=== PATIENT | male | born 1950 | race African-American/Black ===

== ENCOUNTER 2019-03-14 05:49 | Emergency (ER) | payer BC, MEDICAID ==
[~2019-03-14] VITALS: Ht 172.7 cm; Wt 68.0 kg
[2019-03-14 06:47] LABS: BASOPHILS % 0.8 % (0.0-2.0); HEMATOCRIT. 40.9 % (42.0-52.0); LYMPHOCYTES % 21.2 % (20.0-50.0); MEAN CORPUSCULAR HEMOGLOBIN 30.7 pg (28.0-32.0); MEAN CORPUSCULAR VOLUME 90.2 fL (80.0-94.0); MEAN PLATELET VOLUME 9.7 fl (7.4-10.4); MONOCYTES % 7.6 % (2.0-8.0); NEUTROPHILS % 67.4 % (40.0-76.0); PLATELET 169 x1000/uL (130-400); RED BLOOD CELL COUNT 4.54 mill/uL (4.7-6.1); RED CELL DISTRIBUTION WIDTH 13.9 % (11.6-14.6)
[2019-03-14 06:53] LABS: CHLORIDE 112 mEq/L (98-107)
[2019-03-14 06:56] LABS: INR 1.2; PROTHROMBIN TIME 11.8 sec (9.6-11.0)
[2019-03-14 11:25] LABS: CLARITY URINE CLEAR (CLEAR); COLOR URINE YELLOW (YELLOW); KETONES URINE TRACE (NEGATIVE); LEUKOCYTE ESTERASE URINE NEGATIVE (NEGATIVE); NITRITE URINE NEGATIVE (NEGATIVE); OCCULT BLOOD URINE NEGATIVE (NEGATIVE); PROTEIN URINE NEGATIVE (NEGATIVE); SPECIFIC GRAVITY URINE 1.023 (1.005-1.030)
[2019-03-14 12:03] VITALS: BP 112/64
== END 2019-03-14 12:19 | disposition short-term general hospital (02) ==
LOC: ER 05:49
DX: G35 Multiple sclerosis (principal); Z99.3 Dependence on wheelchair; Z74.1 Need for assistance with personal care; N40.0 Benign prostatic hyperplasia without lower urinary tract symptoms; H40.9 Unspecified glaucoma; Z79.899 Other long term (current) drug therapy
CPT/HCPCS: 36415; 71045; 81003; 93005; 99285

== ENCOUNTER 2020-01-12 17:40 | Inpatient (IN) | payer MEDICARE, MEDICAID ==
[~2020-01-12] VITALS: Ht 162.6 cm; Wt 65.8 kg
[2020-01-12 20:28] LABS: BASOPHILS % 0.5 % (0.0-2.0); EOSINOPHILS % 1.6 % (0.0-5.0); HEMATOCRIT. 46.5 % (42.0-52.0); HEMOGLOBIN. 15.3 g/dL (14.0-18.0); LYMPHOCYTES % 19.7 % (20.0-50.0); MEAN CORPUSCULAR HEMOGLOBIN 29.8 pg (28.0-32.0); MEAN CORPUSCULAR VOLUME 90.5 fL (80.0-94.0); MEAN PLATELET VOLUME 10.1 fl (7.4-10.4); NEUTROPHILS % 72.2 % (40.0-76.0); PLATELET 182 x1000/uL (130-400); RED BLOOD CELL COUNT 5.14 mill/uL (4.7-6.1); RED CELL DISTRIBUTION WIDTH 14.1 % (11.6-14.6)
[2020-01-12 20:33] LABS: CHLORIDE 109 mEq/L (98-107)
[2020-01-12 20:40] LABS: ETHANOL BLOOD < 10 mg/dL
[2020-01-13 03:38] LABS: CLARITY URINE CLEAR (CLEAR); COLOR URINE YELLOW (YELLOW); KETONES URINE TRACE (NEGATIVE); LEUKOCYTE ESTERASE URINE NEGATIVE (NEGATIVE); NITRITE URINE NEGATIVE (NEGATIVE); OCCULT BLOOD URINE NEGATIVE (NEGATIVE); PROTEIN URINE TRACE (NEGATIVE)
[2020-01-13 03:47] LABS: *AMPHETAMINES SCREEN URINE NEGATIVE (NEGATIVE); *BARBITURATES SCREEN URINE NEGATIVE (NEGATIVE); *BENZODIAZEPINES SCREEN URINE NEGATIVE (NEGATIVE); *COCAINE SCREEN URINE PRESUMTIVE POSITIVE (NEGATIVE); CANNABINOID URINE SCREEN NEGATIVE (NEGATIVE); METHADONE URINE SCREEN NEGATIVE (NEGATIVE); OPIATES URINE SCREEN NEGATIVE (NEGATIVE); PHENCYCLIDINE URINE SCREEN NEGATIVE (NEGATIVE)
[2020-01-13] MEDS ORDERED: SODIUM CHLORIDE 0.9% 1,000 ML IV ONE (04:30)
[2020-01-15] MEDS ORDERED: SODIUM CHLORIDE 0.9% 1,000 ML IV ONE (10:30)
[2020-01-15] MEDS ORDERED: DOCUSATE SODIUM 100MG CAPSULE PO PRN (17:30)
[2020-01-15] MEDS ORDERED: CLONIDINE 0.1MG TABLET PO PRN (17:30)
[2020-01-15] MEDS ORDERED: MAGNESIUM HYDROXIDE 400MG/5ML 30ML UDC PO PRN (17:30)
[2020-01-15] MEDS ORDERED: ONDANSETRON HCL 4MG/2ML INJ IV PRN (17:30)
[2020-01-15] MEDS ORDERED: ACETAMINOPHEN 325MG TABLET PO PRN ×2 (17:30)
[2020-01-15] MEDS ORDERED: MAGNESIUM/ALUMINUM HYDROXIDE/SIMETHICONE 30ML UDC PO PRN (17:30)
[2020-01-15] MEDS ORDERED: CARB100C9 PO (19:10)
[2020-01-15] MEDS ORDERED: TAMS-11 PO (19:10)
[2020-01-15 19:42] VITALS: BP 113/68
[2020-01-15 20:00] VITALS: BP 120/75
[2020-01-15] MEDS ORDERED: ZOLPIDEM TARTRATE 5MG TABLET PO PRN (21:00)
[2020-01-15] MEDS ORDERED: SODIUM CHLORIDE 0.9% INJ 3ML FLUSH IVF SCH (22:00)
[2020-01-16] VITALS: BP 105/64
[2020-01-16 04:00] VITALS: BP 106/65
[2020-01-16 08:00] VITALS: BP 107/70
[2020-01-16] MEDS: CARBAMAZEPINE 100MG TABLET CHEW PO SCH (08:54)
[2020-01-16 12:00] VITALS: BP 112/73
[2020-01-16 16:00] VITALS: BP 115/82
[2020-01-16 20:00] VITALS: BP 120/80
[2020-01-17] VITALS (7 sets, daily range): BP systolic 102–122; BP diastolic 57–78
[2020-01-17] MEDS: CARBAMAZEPINE 100MG TABLET CHEW PO SCH (08:59)
== END 2020-01-17 20:00 | DRG 59 ==
LOC: ER 17:40 → 6EST 01-15 10:55 → ENRESERV 01-15 15:33
PROVIDERS: ADMIT Internal Medicine; ATTEND Internal Medicine
DX: G35 Multiple sclerosis (principal); R45.851 Suicidal ideations; R53.81 Other malaise; F14.10 Cocaine abuse, uncomplicated; K21.9 Gastro-esophageal reflux disease without esophagitis; F32.9 Major depressive disorder, single episode, unspecified; N18.9 Chronic kidney disease, unspecified; Z59.0 Homelessness; Z82.0 Family history of epilepsy and other diseases of the nervous system; Z99.3 Dependence on wheelchair; Z91.5 Personal history of self-harm; G50.0 Trigeminal neuralgia
CPT/HCPCS: 36415; 71045; 80053; 80320; 85025; 93005; 93970; 97110; 97162; 97530; 99285; J7030; G0480